=== PATIENT | female | born 1950 | race Caucasian/White ===

== ENCOUNTER → 2017-05-14 | Outpatient (CLI) | payer OTHER ==
[~2017-05-14] MED LIST: A-CARO-2525000 UNIT PO; AMARYL4 MG PO; DIABETIC TUSSI400 MG PO; DYAZIDE 37.5-21 EACH PO; FISHOIL; GLUCOPHAGE500 MG PO; GLUCOSAMINE S1000 M2 PO; HAIR VITAMIN; KLOR-CON; PROTONIX40 M2 PO; SELENIMIN200 MCG PO; VITAMIN E1000 UNI1 PO; XANAX 0.25 MG0.25 MG PO; ZESTORETIC 10-1 EACH PO
== END ==
LOC: M.RAD 10:56
DX: Z12.31 Encounter for screening mammogram for malignant neoplasm of breast (principal)